=== PATIENT | male | born 1995 | race Caucasian/White ===

== ENCOUNTER 2019-02-12 23:04 | Day surgery (SDC) | payer BC ==
[2019-02-12] MEDS ORDERED: Sodium Chloride 0.9% 1,000 ML IV ONE (23:31)
[2019-02-12] MEDS ORDERED: Ketorolac 30 MG/ML SDV IVPUSH ONE (23:31)
[2019-02-12] MEDS ORDERED: Ondansetron 4 MG/2 ML SDV IVPUSH ONE (23:31)
[2019-02-12] MEDS ORDERED: Sodium Chloride 0.9% 10 ML Syringe FLUSH PRN (23:31)
[2019-02-12] MEDS ORDERED: Sodium Chloride 0.9% 2.5 ML Syringe FLUSH PRN (23:31)
--- NOTE | 2019-02-12 23:35 | EDM.PDOC ---
ED HPI GENERAL MEDICAL PROBLEM - General Chief Complaint: Abdominal Pain Stated Complaint: ABD PAIN Time Seen by Provider: 02/12/19 23:05 - History of Present Illness INITIAL COMMENTS - FREE TEXT/NARRATIVE: HISTORY AND PHYSICAL: History of present illness: The patient is a healthy 23-year-old male with no GI history or abdominal surgical history who presents with onset of periumbilical pain at a proximally 7 :30 PM which has now moved to the right lower quadrant. The patient tells me he had a normal day without any systemic issues and had a normal bowel movement earlier and ate at a local [employer] food restaurant and soon after finishing started having some periumbilical discomfort. He thought it was just something that he ate that upset his stomach as he says he has gotten stomachaches with certain foods in the past but has no discrete food intolerance. He says that he did not take anything for the pain and has had some intermittent nausea but no vomiting and he has not had a fever at home. The pain has been moving and is now on the right lower quadrant but there is no testicular pain or swelling and no flank pain. He has no urinary complaints or hematuria. He tells me that he has had stomachaches before with certain foods but never anything like this and it is very different. He denies any recent history of illnesses or trauma. He says as a deep aching pain and he does not feel bloated or gassy. Review of systems: As per history of present illness and below otherwise all systems reviewed and negative. Past medical history: As per history of present illness and as reviewed below otherwise noncontributory. Surgical history: As per history of present illness and as reviewed below otherwise noncontributory. Social history: No reported history of drug or alcohol abuse. Family history: As per history of present illness and as reviewed below otherwise noncontributory. Physical exam: General: Well-developed well-nourished man who moves easily in the ED without distress. Vital signs are noted by me. HEENT: Atraumatic, normocephalic, negative for conjunctival pallor or scleral icterus, mucous membranes moist, throat clear, neck supple, nontender, trachea midline. Lungs: Clear to auscultation, breath sounds equal bilaterally, chest nontender. Heart: S1S2, regular rate and rhythm no overt murmurs Abdomen: Soft, nondistended, bowel sounds are slightly hypoactive and there is a little tympany on percussion of the left upper quadrant. On examination there is discomfort on the right side when I palpate the left side and there is no specific periumbilical tenderness. There is moderate point tenderness in the right lower quadrant with some voluntary guarding but no involuntary guarding or rebound. Negative for masses or hepatosplenomegaly. Negative for costovertebral tenderness. Pelvis: Stable nontender. Genitourinary: Deferred. Rectal: Deferred. Extremities: Atraumatic, negative for cords or calf pain. Neurovascular unremarkable. Neuro: Awake, alert, oriented. Cranial nerves II through XII unremarkable. Cerebellum unremarkable. Motor and sensory unremarkable throughout. Exam nonfocal. Diagnostics: CBC CMP UA with reflex CT scan of the abdomen and pelvis Therapeutics: IV fluids Zofran Toradol Zosyn 0142: This was discussed with Dr. Kelly who will admit the patient and do surgery later this morning. I discussed all of the testing results with the patient and he is aware that he needs surgery and admission and is agreeable. Impression: Tip appendicitis Definitive disposition and diagnosis as appropriate pending reevaluation and review of above. RLQ abdomen Pain Score (Numeric/FACES): 7 - Related Data Allergies Allergy/AdvReac Type Severity Reaction Status Date / Time No Known Allergies Allergy Verified 02/12/19 23:07 Home Meds: Home Meds . [No Known Home Meds] 02/12/19 [History] Past Medical History - Past Surgical History HEENT Surgical History: Reports: Oral Surgery Social & Family History - Family History Family Medical History: Noncontributory - Tobacco Use Smoking Status *Q: Never Smoker - Recreational Drug Use Recreational Drug Use: No ED ROS GENERAL - Review of Systems Review Of Systems: ROS reveals no pertinent complaints other than HPI. ED EXAM, GENERAL - Physical Exam Exam: See Below (See dictation) Course - Vital Signs Last Recorded V/S: Last Vital Signs Temp 36.6 C 02/13/19 01:37 Pulse 55 L 02/13/19 01:37 Resp 18 02/13/19 01:37 BP 113/62 02/13/19 01:37 Pulse Ox 97 02/13/19 01:37 - Orders/Labs/Meds Orders: Active Orders 24 hr Category Date Time Status Patient Status [ADT] Stat ADT 02/13/19 01:47 Ordered Lactated Ringers [Ringers, Lactated] 1,000 ml Med 02/13/19 01:45 Active IV ASDIRECTED Piperacillin/Tazobactam [Piperacil-Tazobact] 3.375 gm Med 02/13/19 01:44 Active Sodium Chloride 0.9% [Normal Saline] 50 ml IV ONETIME Sodium Chloride 0.9% [Saline Flush] Med 02/12/19 23:31 Active 10 ml FLUSH ASDIRECTED PRN Sodium Chloride 0.9% [Saline Flush] Med 02/12/19 23:31 Active 2.5 ml FLUSH ASDIRECTED PRN Saline Lock Insert [OM.PC] Stat Oth 02/12/19 23:31 Ordered Medication Orders Lactated Ringer's (Ringers, Lactated) 1,000 mls @ 125 mls/hr IV ASDIRECTED HARJTI Piperacillin Sod/Tazobactam (Sod 3.375 gm/ Sodium Chloride) 50 mls @ 100 mls/ hr IV ONETIME ONE Stop: 02/13/19 02:13 Sodium Chloride (Saline Flush) 10 ml FLUSH ASDIRECTED PRN PRN Reason: Keep Vein Open Sodium Chloride (Saline Flush) 2.5 ml FLUSH ASDIRECTED PRN PRN Reason: Keep Vein Open Labs: Laboratory Tests 02/12/19 02/12/19 02/12/19 Range/Units 23:30 23:35 23:35 WBC 14.85 H (4.0-11.0) K/uL RBC 5.38 (4.50-5.90) M/uL Hgb 16.8 (13.0-17.0) g/dL Hct 48.8 (38.0-50.0) % MCV 90.7 (80.0-98.0) fL MCH 31.2 (27.0-32.0) pg MCHC 34.4 (31.0-37.0) g/dL RDW Std Deviation 42.9 (28.0-62.0) fl RDW Coeff of Linda 13 (11.0-15.0) % Plt Count 220 (150-400) K/uL MPV 12.60 H (7.40-12.00) fL Neut % (Auto) 68.4 (48.0-80.0) % Lymph % (Auto) 20.3 (16.0-40.0) % [place] % (Auto) 9.6 (0.0-15.0) % Eos % (Auto) 1.6 (0.0-7.0) % Baso % (Auto) 0.1 (0.0-1.5) % Neut # (Auto) 10.2 H (1.4-5.7) K/uL Lymph # (Auto) 3.0 H (0.6-2.4) K/uL [place] # (Auto) 1.4 H (0.0-0.8) K/uL Eos # (Auto) 0.2 (0.0-0.7) K/uL Baso # (Auto) 0.0 (0.0-0.1) K/uL Nucleated RBC % 0.0 /100WBC Nucleated RBCs # 0 K/uL Sodium 140 (136-148) mmol/L Potassium 3.5 (3.5-5.1) mmol/L Chloride 103 (98-107) mmol/L Carbon Dioxide 29.3 (21.0-32.0) mmol/L BUN 15 (7.0-18.0) mg/dL Creatinine 1.3 (0.8-1.3) mg/dL Est Cr Clr Drug Dosing 111.38 mL/min Estimated GFR (MDRD) > 60.0 ml/min Glucose 108 H (74-106) mg/dL Calcium 8.7 (8.5-10.1) mg/dL Total Bilirubin 0.4 (0.2-1.0) mg/dL AST 18 (15-37) IU/L ALT 28 (14-63) IU/L Alkaline Phosphatase 57 (46-116) U/L Total Protein 7.9 (6.4-8.2) g/dL Albumin 4.1 (3.4-5.0) g/dL Globulin 3.8 (2.6-4.0) g/dL Albumin/Globulin Ratio 1.1 (0.9-1.6) Urine Color YELLOW Urine Appearance CLEAR Urine pH 6.5 (5.0-8.0) Ur Specific [place] 1.025 (1.001-1.035) Urine Protein NEGATIVE (NEGATIVE) mg/dL Urine Glucose (UA) NEGATIVE (NEGATIVE) mg/dL Urine Ketones NEGATIVE (NEGATIVE) mg/dL Urine Occult Blood NEGATIVE (NEGATIVE) Urine Nitrite NEGATIVE (NEGATIVE) Urine Bilirubin NEGATIVE (NEGATIVE) Urine Urobilinogen 0.2 (<2.0) EU/dL Ur Leukocyte Esterase NEGATIVE (NEGATIVE) Meds: Medications Generic Name Dose Route Start Last Admin Trade Name Freq PRN Reason Stop Dose Admin Lactated Ringer's 1,000 mls @ 125 mls/hr 02/13/19 01:45 Ringers, Lactated IV ASDIRECTED HARJIT Piperacillin Sod/Tazobactam 50 mls @ 100 mls/hr 02/13/19 01:44 Sod 3.375 gm/ Sodium Chloride IV 02/13/19 02:13 ONETIME ONE Sodium Chloride 10 ml 02/12/19 23:31 Saline Flush FLUSH ASDIRECTED PRN Keep Vein Open Sodium Chloride 2.5 ml 02/12/19 23:31 Saline Flush FLUSH ASDIRECTED PRN Keep Vein Open Discontinued Medications Generic Name Dose Route Start Last Admin Trade Name Freq PRN Reason Stop Dose Admin Sodium Chloride 1,000 mls @ 999 mls/hr 02/12/19 23:31 02/12/19 23:43 Normal Saline IV 02/13/19 00:31 999 mls/hr STAT ONE Administration Iopamidol 100 ml 02/13/19 00:54 02/13/19 00:55 Isovue Multipack-370 (76%) IVPUSH 02/13/19 00:55 100 ml ONETIME STA Administration Ketorolac Tromethamine 30 mg 02/12/19 23:31 02/12/19 23:44 Toradol IVPUSH 02/12/19 23:32 30 mg ONETIME ONE Administration Ondansetron HCl 4 mg 02/12/19 23:31 02/12/19 23:44 Zofran IVPUSH 02/12/19 23:32 4 mg ONETIME ONE Administration Departure - Departure Time of Disposition: 01:50 Disposition: DC/Tfer to Other 70 Condition: Good Clinical Impression: Appendicitis Qualifiers: Appendicitis type: acute appendicitis Acute appendicitis type: with localized peritonitis Appendicitis gangrene presence: without gangrene Appendicitis perforation presence: without perforation Appendicitis abscess presence: without abscess Qualified Code(s): K35.30 - Acute appendicitis with localized peritonitis, without perforation or gangrene - Discharge Information Referrals: PCP,None [Primary Care Provider] - Forms: ED Department Discharge - My Orders Last 24 Hours: My Active Orders 02/12/19 23:31 Sodium Chloride 0.9% [Saline Flush] 10 ml FLUSH ASDIRECTED PRN Sodium Chloride 0.9% [Saline Flush] 2.5 ml FLUSH ASDIRECTED PRN Saline Lock Insert [OM.PC] Stat 02/13/19 01:44 Piperacillin/Tazobactam [Piperacil-Tazobact] 3.375 gm Sodium Chloride 0.9% [ Normal Saline] 50 ml IV ONETIME 02/13/19 01:45 Lactated Ringers [Ringers, Lactated] 1,000 ml IV ASDIRECTED 02/13/19 01:47 Patient Status [ADT] Stat - Assessment/Plan Last 24 Hours: My Active Orders 02/12/19 23:31 Sodium Chloride 0.9% [Saline Flush] 10 ml FLUSH ASDIRECTED PRN Sodium Chloride 0.9% [Saline Flush] 2.5 ml FLUSH ASDIRECTED PRN Saline Lock Insert [OM.PC] Stat 02/13/19 01:44 Piperacillin/Tazobactam [Piperacil-Tazobact] 3.375 gm Sodium Chloride 0.9% [ Normal Saline] 50 ml IV ONETIME 02/13/19 01:45 Lactated Ringers [Ringers, Lactated] 1,000 ml IV ASDIRECTED 02/13/19 01:47 Patient Status [ADT] Stat
[2019-02-13 00:05] LABS: BLOOD UREA NITROGEN,BUN 15 mg/dL (7.0-18.0); CARBON DIOXIDE,CO2 29.3 mmol/L (21.0-32.0); CHLORIDE,CL 103 mmol/L (98-107); GLUCOSE RANDOM 108 mg/dL (74-106); POTASSIUM,K 3.5 mmol/L (3.5-5.1); SODIUM,NA 140 mmol/L (136-148)
[2019-02-13] MEDS ORDERED: Iopamidol 755 MG/ML 500 ML Multipack Bottle IVPUSH STA (00:54)
--- NOTE | 2019-02-13 01:32 | CT ---
INDICATION: Right lower quadrant pain TECHNIQUE: CT abdomen and pelvis acquired with IV contrast. 100 mL of Isovue 370 administered. COMPARISON: None available FINDINGS: Lower chest: Unremarkable. Liver: A subcentimeter superior right hepatic low-density lesion, too small to characterize, statistically a small cyst. Spleen: Unremarkable. Pancreas: Unremarkable. Gallbladder and bile ducts: Unremarkable. Adrenal glands: Unremarkable. Kidneys: Unremarkable. GI tract: Fluid-filled mid to distal appendix, demonstrating mild wall enhancement, with the distal appendiceal tip measuring up to 8 mm in diameter, and trace adjacent stranding, suggestive of early tip appendicitis. The proximal appendix is gas-filled and normal in caliber. No bowel obstruction. No significant pericolonic changes. Vascular structures: Unremarkable. Lymph nodes: Unremarkable. Miscellaneous: No significant free fluid or free air. Pelvic Organs: Unremarkable. Bones: Unremarkable for age. IMPRESSION: Findings suggestive of early tip appendicitis. Correlate clinically. Dictated by Lucien Sutton MD @ 02/13/2019 1:29:31 AM Please note that all CT scans at this facility use dose modulation, iterative reconstruction, and/or weight-based dosing when appropriate to reduce radiation dose to as low as reasonably achievable. Dictated by: Lucien Sutton MD @ 02/13/2019 01:31:24 (Electronically Signed)
[2019-02-13] MEDS ORDERED: Piperacillin/Tazobactam 3.375 GM in Sodium Chloride 0.9% 50 ML IV ONE (01:44)
[2019-02-13] MEDS ORDERED: Lactated Ringers 1,000 ML IV SCH ×2 (01:45→02:15)
[2019-02-13] MEDS ORDERED: HYDROmorphone 1 MG/ML Syringe IM PRN (02:04)
[2019-02-13] MEDS ORDERED: Ondansetron 4 MG/2 ML SDV IVPUSH PRN (02:07)
[2019-02-13] MEDS: Piperacillin/Tazobactam 3.375 GM in Sodium Chloride 0.9% 50 ML IV SCH ×2 (03:49→08:10)
--- NOTE | 2019-02-13 07:23 | PCM.PREANE ---
Preanesthetic Assessment - Anesthesia/Transfusion/Family Hx Anesthesia History: Prior Anesthesia Without Reaction Family History of Anesthesia Reaction: No Transfusion History: No Prior Transfusion(s) - Review of Systems General: No Symptoms Pulmonary: No Symptoms Cardiovascular: No Symptoms Gastrointestinal: No Symptoms Neurological: No Symptoms Other: Reports: None - Physical Assessment NPO Status Date: 02/12/19 NPO Status Time: 20:00 Vital Signs: Last Vital Signs Temp 98.6 F 02/13/19 04:33 Pulse 54 L 02/13/19 04:33 Resp 18 02/13/19 04:33 BP 99/57 L 02/13/19 04:33 Pulse Ox 95 02/13/19 04:33 Height: 6 ft 5 in Weight: 90.451 kg ASA Class: 2E Mental Status: Alert & Oriented x3 Airway Class: Mallampati = 2 Dentition: Reports: Normal Dentition Thyro-Mental Finger Breadths: 3 Mouth Opening Finger Breadths: 3 ROM/Head Extension: Full Lungs: Clear to Auscultation, Normal Respiratory Effort Cardiovascular: Regular Rate, Regular Rhythm - Lab Values: Laboratory Last Values WBC 14.85 K/uL (4.0-11.0) H 02/12/19 23:35 RBC 5.38 M/uL (4.50-5.90) 02/12/19 23:35 Hgb 16.8 g/dL (13.0-17.0) 02/12/19 23:35 Hct 48.8 % (38.0-50.0) 02/12/19 23:35 MCV 90.7 fL (80.0-98.0) 02/12/19 23:35 MCH 31.2 pg (27.0-32.0) 02/12/19 23:35 MCHC 34.4 g/dL (31.0-37.0) 02/12/19 23:35 RDW Std Deviation 42.9 fl (28.0-62.0) 02/12/19 23:35 RDW Coeff of Linda 13 % (11.0-15.0) 02/12/19 23:35 Plt Count 220 K/uL (150-400) 02/12/19 23:35 MPV 12.60 fL (7.40-12.00) H 02/12/19 23:35 Neut % (Auto) 68.4 % (48.0-80.0) 02/12/19 23:35 Lymph % (Auto) 20.3 % (16.0-40.0) 02/12/19 23:35 [place] % (Auto) 9.6 % (0.0-15.0) 02/12/19 23:35 Eos % (Auto) 1.6 % (0.0-7.0) 02/12/19 23:35 Baso % (Auto) 0.1 % (0.0-1.5) 02/12/19 23:35 Neut # (Auto) 10.2 K/uL (1.4-5.7) H 02/12/19 23:35 Lymph # (Auto) 3.0 K/uL (0.6-2.4) H 02/12/19 23:35 [place] # (Auto) 1.4 K/uL (0.0-0.8) H 02/12/19 23:35 Eos # (Auto) 0.2 K/uL (0.0-0.7) 02/12/19 23:35 Baso # (Auto) 0.0 K/uL (0.0-0.1) 02/12/19 23:35 Nucleated RBC % 0.0 /100WBC 02/12/19 23:35 Nucleated RBCs # 0 K/uL 02/12/19 23:35 Sodium 140 mmol/L (136-148) 02/12/19 23:35 Potassium 3.5 mmol/L (3.5-5.1) 02/12/19 23:35 Chloride 103 mmol/L (98-107) 02/12/19 23:35 Carbon Dioxide 29.3 mmol/L (21.0-32.0) 02/12/19 23:35 BUN 15 mg/dL (7.0-18.0) 02/12/19 23:35 Creatinine 1.3 mg/dL (0.8-1.3) 02/12/19 23:35 Est Cr Clr Drug Dosing 111.38 mL/min 02/12/19 23:35 Estimated GFR (MDRD) > 60.0 ml/min 02/12/19 23:35 Glucose 108 mg/dL (74-106) H 02/12/19 23:35 Calcium 8.7 mg/dL (8.5-10.1) 02/12/19 23:35 Total Bilirubin 0.4 mg/dL (0.2-1.0) 02/12/19 23:35 AST 18 IU/L (15-37) 02/12/19 23:35 ALT 28 IU/L (14-63) 02/12/19 23:35 Alkaline Phosphatase 57 U/L (46-116) 02/12/19 23:35 Total Protein 7.9 g/dL (6.4-8.2) 02/12/19 23:35 Albumin 4.1 g/dL (3.4-5.0) 02/12/19 23:35 Globulin 3.8 g/dL (2.6-4.0) 02/12/19 23:35 Albumin/Globulin Ratio 1.1 (0.9-1.6) 02/12/19 23:35 Urine Color YELLOW 02/12/19 23:30 Urine Appearance CLEAR 02/12/19 23:30 Urine pH 6.5 (5.0-8.0) 02/12/19 23:30 Ur Specific [place] 1.025 (1.001-1.035) 02/12/19 23:30 Urine Protein NEGATIVE mg/dL (NEGATIVE) 02/12/19 23:30 Urine Glucose (UA) NEGATIVE mg/dL (NEGATIVE) 02/12/19 23:30 Urine Ketones NEGATIVE mg/dL (NEGATIVE) 02/12/19 23:30 Urine Occult Blood NEGATIVE (NEGATIVE) 02/12/19 23:30 Urine Nitrite NEGATIVE (NEGATIVE) 02/12/19 23:30 Urine Bilirubin NEGATIVE (NEGATIVE) 02/12/19 23:30 Urine Urobilinogen 0.2 EU/dL (<2.0) 02/12/19 23:30 Ur Leukocyte Esterase NEGATIVE (NEGATIVE) 02/12/19 23:30 - Allergies Allergies/Adverse Reactions: Allergies Allergy/AdvReac Type Severity Reaction Status Date / Time house dust Allergy Sneezing Verified 02/13/19 03:00 tree and shrub pollen Allergy Sneezing Verified 02/13/19 03:00 - Acknowledgements Anesthesia Type Planned: General Anesthesia Pt an Appropriate Candidate for the Planned Anesthesia: Yes Alternatives and Risks of Anesthesia Discussed w Pt/Guardian: Yes Pt/Guardian Understands and Agrees with Anesthesia Plan: Yes PreAnesthesia Questionnaire HEENT History: Reports: None Cardiovascular History: Reports: None Respiratory History: Reports: None Gastrointestinal History: Reports: Other (See Below) (appendicitis) Genitourinary History: Reports: None Musculoskeletal History: Reports: None Neurological History: Reports: None Psychiatric History: Reports: None Endocrine/Metabolic History: Reports: None Hematologic History: Reports: None Immunologic History: Reports: None Oncologic (Cancer) History: Reports: None Dermatologic History: Reports: None - Infectious Disease History Infectious Disease History: Reports: None - Past Surgical History HEENT Surgical History: Reports: Oral Surgery (wisdom teeth extraction.) - SUBSTANCE USE Smoking Status *Q: Never Smoker Tobacco Use Within Last Twelve Months: Vaping Date of Last Drink: 02/11/19 Recreational Drug Use History: No - HOME MEDS Home Medications: Home Meds Ibuprofen [Advil Liqui-Gels] 200 cap PO Q4HR PRN 02/13/19 [History] - CURRENT (IN HOUSE) MEDS Current Meds: Current Medications Hydromorphone HCl (Dilaudid) 0.5 mg IM Q1H PRN PRN Reason: Pain Lactated Ringer's (Ringers, Lactated) 1,000 mls @ 125 mls/hr IV ASDIRECTED [facility] Last Admin: 02/13/19 01:53 Dose: 125 mls/hr Lactated Ringer's (Ringers, Lactated) 1,000 mls @ 125 mls/hr IV ASDIRECTED [facility] Piperacillin Sod/Tazobactam (Sod 3.375 gm/ Sodium Chloride) 50 mls @ 100 mls/ hr IV Q6H [facility] Last Admin: 02/13/19 03:49 Dose: Not Given Ondansetron HCl (Zofran) 4 mg IVPUSH Q6H PRN PRN Reason: Nausea Sodium Chloride (Saline Flush) 10 ml FLUSH ASDIRECTED PRN PRN Reason: Keep Vein Open Sodium Chloride (Saline Flush) 2.5 ml FLUSH ASDIRECTED PRN PRN Reason: Keep Vein Open Discontinued Medications Sodium Chloride (Normal Saline) 1,000 mls @ 999 mls/hr IV STAT ONE Stop: 02/13/19 00:31 Last Admin: 02/12/19 23:43 Dose: 999 mls/hr Piperacillin Sod/Tazobactam (Sod 3.375 gm/ Sodium Chloride) 50 mls @ 100 mls/ hr IV ONETIME ONE Stop: 02/13/19 02:13 Last Admin: 02/13/19 01:53 Dose: 100 mls/hr Iopamidol (Isovue Multipack-370 (76%)) 100 ml IVPUSH ONETIME STA Stop: 02/13/19 00:55 Last Admin: 02/13/19 00:55 Dose: 100 ml Ketorolac Tromethamine (Toradol) 30 mg IVPUSH ONETIME ONE Stop: 02/12/19 23:32 Last Admin: 02/12/19 23:44 Dose: 30 mg Ondansetron HCl (Zofran) 4 mg IVPUSH ONETIME ONE Stop: 02/12/19 23:32 Last Admin: 02/12/19 23:44 Dose: 4 mg
--- NOTE | 2019-02-13 08:23 | PCM.HP.2 ---
H&P History of Present Illness - General Date of Service: 02/13/19 Admit Problem/Dx: Admission Diagnosis/Problem Admission Diagnosis/Problem Appendicitis Source of Information: Patient History Limitations: Reports: No Limitations - History of Present Illness Initial Comments - Free Text/Narative: Patient is a 23 year old male who presents with RLQ pain since last night. He had dinner and felt unwell afterwards. He went home and developed darcie- umbilical pain that then migrated to the RLQ. He presented to the ER. He had an elevated WBC of 14K. A CT scan was performed that showed a slightly dilated tip of the appendix consistent with early appendicitis. RLQ abdomen Pain Score (Numeric/FACES): 1 - Related Data Allergies/Adverse Reactions: Allergies Allergy/AdvReac Type Severity Reaction Status Date / Time house dust Allergy Sneezing Verified 02/13/19 03:00 tree and shrub pollen Allergy Sneezing Verified 02/13/19 03:00 Home Medications: Home Meds Ibuprofen [Advil Liqui-Gels] 200 cap PO Q4HR PRN 02/13/19 [History] Past Medical History HEENT History: Reports: None Cardiovascular History: Reports: None Respiratory History: Reports: None Gastrointestinal History: Reports: Other (See Below) (appendicitis) Genitourinary History: Reports: None Musculoskeletal History: Reports: None Neurological History: Reports: None Psychiatric History: Reports: None Endocrine/Metabolic History: Reports: None Hematologic History: Reports: None Immunologic History: Reports: None Oncologic (Cancer) History: Reports: None Dermatologic History: Reports: None - Infectious Disease History Infectious Disease History: Reports: None - Past Surgical History HEENT Surgical History: Reports: Oral Surgery (wisdom teeth extraction.) Social & Family History - Family History Family Medical History: Noncontributory - Tobacco Use Smoking Status *Q: Never Smoker Tobacco Use Comment: Occasional - Caffeine Use Caffeine Use: Reports: Coffee, Soda, Tea - Alcohol Use Date of Last Drink: 02/11/19 - Recreational Drug Use Recreational Drug Use: No H&P Review of Systems - Review of Systems: Review Of Systems: ROS reveals no pertinent complaints other than HPI. Exam - Exam Exam: See Below - Vital Signs Vital Signs: Last Vital Signs Temp 36.8 C 02/13/19 07:00 Pulse 68 02/13/19 07:00 Resp 16 02/13/19 07:00 BP 115/57 L 02/13/19 07:00 Pulse Ox 97 02/13/19 07:00 Weight: 90.451 kg - Exam General: Alert, Oriented HEENT: Conjunctiva Clear, Mucosa Moist & [place], Posterior Pharynx Clear Neck: Supple, Trachea Midline Lungs: Clear to Auscultation, Normal Respiratory Effort Cardiovascular: Regular Rate, Regular Rhythm GI/Abdominal Exam: Soft, No Distention, No Mass, Guarding (RLQ), Rebound (RLQ), Tender (RLQ) Back Exam: Normal Inspection Extremities: Normal Inspection - Patient Data Lab Results Last 24 hrs: Laboratory Results - last 24 hr 02/12/19 02/12/19 02/12/19 Range/Units 23:30 23:35 23:35 WBC 14.85 H (4.0-11.0) K/uL RBC 5.38 (4.50-5.90) M/uL Hgb 16.8 (13.0-17.0) g/dL Hct 48.8 (38.0-50.0) % MCV 90.7 (80.0-98.0) fL MCH 31.2 (27.0-32.0) pg MCHC 34.4 (31.0-37.0) g/dL RDW Std Deviation 42.9 (28.0-62.0) fl RDW Coeff of Linda 13 (11.0-15.0) % Plt Count 220 (150-400) K/uL MPV 12.60 H (7.40-12.00) fL Neut % (Auto) 68.4 (48.0-80.0) % Lymph % (Auto) 20.3 (16.0-40.0) % [place] % (Auto) 9.6 (0.0-15.0) % Eos % (Auto) 1.6 (0.0-7.0) % Baso % (Auto) 0.1 (0.0-1.5) % Neut # (Auto) 10.2 H (1.4-5.7) K/uL Lymph # (Auto) 3.0 H (0.6-2.4) K/uL [place] # (Auto) 1.4 H (0.0-0.8) K/uL Eos # (Auto) 0.2 (0.0-0.7) K/uL Baso # (Auto) 0.0 (0.0-0.1) K/uL Nucleated RBC % 0.0 /100WBC Nucleated RBCs # 0 K/uL Sodium 140 (136-148) mmol/L Potassium 3.5 (3.5-5.1) mmol/L Chloride 103 (98-107) mmol/L Carbon Dioxide 29.3 (21.0-32.0) mmol/L BUN 15 (7.0-18.0) mg/dL Creatinine 1.3 (0.8-1.3) mg/dL Est Cr Clr Drug Dosing 111.38 mL/min Estimated GFR (MDRD) > 60.0 ml/min Glucose 108 H (74-106) mg/dL Calcium 8.7 (8.5-10.1) mg/dL Total Bilirubin 0.4 (0.2-1.0) mg/dL AST 18 (15-37) IU/L ALT 28 (14-63) IU/L Alkaline Phosphatase 57 (46-116) U/L Total Protein 7.9 (6.4-8.2) g/dL Albumin 4.1 (3.4-5.0) g/dL Globulin 3.8 (2.6-4.0) g/dL Albumin/Globulin Ratio 1.1 (0.9-1.6) Urine Color YELLOW Urine Appearance CLEAR Urine pH 6.5 (5.0-8.0) Ur Specific [place] 1.025 (1.001-1.035) Urine Protein NEGATIVE (NEGATIVE) mg/dL Urine Glucose (UA) NEGATIVE (NEGATIVE) mg/dL Urine Ketones NEGATIVE (NEGATIVE) mg/dL Urine Occult Blood NEGATIVE (NEGATIVE) Urine Nitrite NEGATIVE (NEGATIVE) Urine Bilirubin NEGATIVE (NEGATIVE) Urine Urobilinogen 0.2 (<2.0) EU/dL Ur Leukocyte Esterase NEGATIVE (NEGATIVE) Result Diagrams: 02/12/19 23:35 02/12/19 23:35 Problem List Initiated/Reviewed/Updated: Yes Orders Last 24hrs: Active Orders 24 hr Category Date Time Status Patient Status [ADT] Stat ADT 02/13/19 01:47 Active Activity as Tolerated [RC] .Routine Care 02/13/19 02:09 Active Vital Signs [RC] Q4H Care 02/13/19 02:08 Active Nothing per Oral Now Diet [DIET] Diet 02/13/19 Breakfast Active HYDROmorphone [Dilaudid] Med 02/13/19 02:04 Active 0.5 mg IM Q1H PRN Lactated Ringers [Ringers, Lactated] 1,000 ml Med 02/13/19 01:45 Active IV ASDIRECTED Lactated Ringers [Ringers, Lactated] 1,000 ml Med 02/13/19 02:15 Active IV ASDIRECTED Ondansetron [Zofran] Med 02/13/19 02:07 Active 4 mg IVPUSH Q6H PRN Piperacillin/Tazobactam [Piperacil-Tazobact] 3.375 gm Med 02/13/19 02:15 Active Sodium Chloride 0.9% [Normal Saline] 50 ml IV Q6H Sodium Chloride 0.9% [Saline Flush] Med 02/12/19 23:31 Active 10 ml FLUSH ASDIRECTED PRN Sodium Chloride 0.9% [Saline Flush] Med 02/12/19 23:31 Active 2.5 ml FLUSH ASDIRECTED PRN Saline Lock Insert [OM.PC] Stat Oth 02/12/19 23:31 Ordered Medication Orders Hydromorphone HCl (Dilaudid) 0.5 mg IM Q1H PRN PRN Reason: Pain Last Admin: 02/13/19 08:07 Dose: 0.5 mg Lactated Ringer's (Ringers, Lactated) 1,000 mls @ 125 mls/hr IV ASDIRECTED [facility] Last Admin: 02/13/19 01:53 Dose: 125 mls/hr Lactated Ringer's (Ringers, Lactated) 1,000 mls @ 125 mls/hr IV ASDIRECTED [facility] Piperacillin Sod/Tazobactam (Sod 3.375 gm/ Sodium Chloride) 50 mls @ 100 mls/ hr IV Q6H [facility] Last Admin: 02/13/19 08:10 Dose: 100 mls/hr Admin: 02/13/19 03:49 Dose: Not Given Ondansetron HCl (Zofran) 4 mg IVPUSH Q6H PRN PRN Reason: Nausea Sodium Chloride (Saline Flush) 10 ml FLUSH ASDIRECTED PRN PRN Reason: Keep Vein Open Sodium Chloride (Saline Flush) 2.5 ml FLUSH ASDIRECTED PRN PRN Reason: Keep Vein Open - Mortality Measure Prognosis:: Good
[2019-02-13] MEDS ORDERED: fentaNYL 100 MCG/2 ML SDV ONE (09:11)
[2019-02-13] MEDS ORDERED: Propofol 200 MG/20 ML SDV ONE (09:11)
[2019-02-13] MEDS ORDERED: Ondansetron 4 MG/2 ML SDV ONE (09:13)
[2019-02-13] MEDS ORDERED: Lidocaine 2% 5 ML SDV ONE (09:13)
[2019-02-13] MEDS ORDERED: Mineral Oil/Petrolatum Ophth Oint 3.5 GM Tube ONE (09:46)
[2019-02-13] MEDS ORDERED: Midazolam 1 MG/ML 2 ML SDV ONE (10:20)
[2019-02-13] MEDS ORDERED: Bupivacaine 0.5% 30 ML SDV ONE (10:30)
[2019-02-13] MEDS ORDERED: Bupivacaine 0.5% 10 ML SDV ONE (10:30)
[2019-02-13] MEDS ORDERED: Rocuronium 100 MG/10 ML Syringe ONE (11:17)
[2019-02-13] MEDS ORDERED: Dexamethasone 4 MG/ML 5 ML MDV ONE (11:31)
[2019-02-13] MEDS ORDERED: Sugammadex Sodium 200 MG/2 ML VIAL ONE (12:02)
[2019-02-13] MEDS ORDERED: Ketorolac 30 MG/ML SDV ONE (12:08)
--- NOTE | 2019-02-13 12:10 | PCM.OPNOTE ---
- General Post-Op/Procedure Note Date of Surgery/Procedure: 02/13/19 Operative Procedure(s): Laparoscopic appendectomy Findings: Enlarged and inflamed appendix, no perforation Pre Op Diagnosis: Appendicitis Post-Op Diagnosis: same Anesthesia Technique: General ET Tube Primary Surgeon: Tati Kelly Fluid Replacement, Intraop: 600 Output, Urine Amount: 50 EBL in mLs: 5 Condition: Fair Free Text/Narrative:: Intake & Output 02/12/19 02/13/19 02/13/19 22:59 06:59 14:59 Intake Total 282 Output Total 0 Balance 282
--- NOTE | 2019-02-13 12:52 | PCM.POSTAN ---
POST ANESTHESIA ASSESSMENT - MENTAL STATUS Mental Status: Alert, Oriented - VITAL SIGNS Vital Signs: Last Vital Signs Temp 37.7 C 02/13/19 12:17 Pulse 46 L 02/13/19 12:47 Resp 10 L 02/13/19 12:47 BP 106/67 02/13/19 12:47 Pulse Ox 98 02/13/19 12:47 - RESPIRATORY Respiratory Status: Respiratory Rate WNL, Airway Patent, O2 Saturation Stable - CARDIOVASCULAR CV Status: Pulse Rate WNL, Blood Pressure Stable - GASTROINTESTINAL GI Status: No Symptoms - PAIN Pain Score: 0 - POST OP HYDRATION Hydration Status: Adequate & Stable - OBSERVATIONS Free Text/Narrative:: The patient has no complaints at this time. He tolerated the procedure well. There were no apparent anesthetic complications at this time. Discharge per criteria.
[2019-02-13] MEDS: Acetaminophen/oxyCODONE 325-5 MG Tab PO PRN ×2 (15:29→19:32)
--- NOTE | 2019-02-13 19:05 | PCM.SURGPN ---
- General Info Date of Service: 02/13/19 POD#: 0 Functional Status: Reports: Pain Controlled, Tolerating Diet, Ambulating, Urinating - Review of Systems General: Reports: No Symptoms HEENT: Reports: No Symptoms Pulmonary: Reports: No Symptoms Cardiovascular: Reports: No Symptoms Gastrointestinal: Reports: Abdominal Pain (left side along incisions ) Genitourinary: Reports: No Symptoms Musculoskeletal: Reports: No Symptoms - Patient Data Vitals - Most Recent: Last Vital Signs Temp 36.4 C 02/13/19 17:00 Pulse 47 L 02/13/19 17:00 Resp 16 02/13/19 17:00 BP 106/59 L 02/13/19 17:00 Pulse Ox 94 L 02/13/19 17:00 Weight - Most Recent: 90.451 kg I&O - Last 24 Hours: Intake & Output 02/13/19 02/13/19 02/13/19 06:59 14:59 22:59 Intake Total 282 1300 640 Output Total 0 150 160 Balance 282 1150 480 Lab Results Last 24 Hrs: Laboratory Results - last 24 hr 02/12/19 02/12/19 02/12/19 Range/Units 23:30 23:35 23:35 WBC 14.85 H (4.0-11.0) K/uL RBC 5.38 (4.50-5.90) M/uL Hgb 16.8 (13.0-17.0) g/dL Hct 48.8 (38.0-50.0) % MCV 90.7 (80.0-98.0) fL MCH 31.2 (27.0-32.0) pg MCHC 34.4 (31.0-37.0) g/dL RDW Std Deviation 42.9 (28.0-62.0) fl RDW Coeff of Linda 13 (11.0-15.0) % Plt Count 220 (150-400) K/uL MPV 12.60 H (7.40-12.00) fL Neut % (Auto) 68.4 (48.0-80.0) % Lymph % (Auto) 20.3 (16.0-40.0) % [place] % (Auto) 9.6 (0.0-15.0) % Eos % (Auto) 1.6 (0.0-7.0) % Baso % (Auto) 0.1 (0.0-1.5) % Neut # (Auto) 10.2 H (1.4-5.7) K/uL Lymph # (Auto) 3.0 H (0.6-2.4) K/uL [place] # (Auto) 1.4 H (0.0-0.8) K/uL Eos # (Auto) 0.2 (0.0-0.7) K/uL Baso # (Auto) 0.0 (0.0-0.1) K/uL Nucleated RBC % 0.0 /100WBC Nucleated RBCs # 0 K/uL Sodium 140 (136-148) mmol/L Potassium 3.5 (3.5-5.1) mmol/L Chloride 103 (98-107) mmol/L Carbon Dioxide 29.3 (21.0-32.0) mmol/L BUN 15 (7.0-18.0) mg/dL Creatinine 1.3 (0.8-1.3) mg/dL Est Cr Clr Drug Dosing 111.38 mL/min Estimated GFR (MDRD) > 60.0 ml/min Glucose 108 H (74-106) mg/dL Calcium 8.7 (8.5-10.1) mg/dL Total Bilirubin 0.4 (0.2-1.0) mg/dL AST 18 (15-37) IU/L ALT 28 (14-63) IU/L Alkaline Phosphatase 57 (46-116) U/L Total Protein 7.9 (6.4-8.2) g/dL Albumin 4.1 (3.4-5.0) g/dL Globulin 3.8 (2.6-4.0) g/dL Albumin/Globulin Ratio 1.1 (0.9-1.6) Urine Color YELLOW Urine Appearance CLEAR Urine pH 6.5 (5.0-8.0) Ur Specific [place] 1.025 (1.001-1.035) Urine Protein NEGATIVE (NEGATIVE) mg/dL Urine Glucose (UA) NEGATIVE (NEGATIVE) mg/dL Urine Ketones NEGATIVE (NEGATIVE) mg/dL Urine Occult Blood NEGATIVE (NEGATIVE) Urine Nitrite NEGATIVE (NEGATIVE) Urine Bilirubin NEGATIVE (NEGATIVE) Urine Urobilinogen 0.2 (<2.0) EU/dL Ur Leukocyte Esterase NEGATIVE (NEGATIVE) Med Orders - Current: Current Medications Hydromorphone HCl (Dilaudid) 0.5 mg IM Q1H PRN PRN Reason: Pain Last Admin: 02/13/19 08:07 Dose: 0.5 mg Ondansetron HCl (Zofran) 4 mg IVPUSH Q6H PRN PRN Reason: Nausea Oxycodone/Acetaminophen (Percocet 325-5 Mg) 2 tab PO Q4H PRN PRN Reason: Abdominal Pain Last Admin: 02/13/19 15:29 Dose: 2 tab Sodium Chloride (Saline Flush) 10 ml FLUSH ASDIRECTED PRN PRN Reason: Keep Vein Open Sodium Chloride (Saline Flush) 2.5 ml FLUSH ASDIRECTED PRN PRN Reason: Keep Vein Open Discontinued Medications Bupivacaine HCl (Marcaine 0.5%) Confirm Administered Dose 30 ml .ROUTE .STK-MED ONE Stop: 02/13/19 10:31 Bupivacaine HCl (Sensorcaine-Mpf 0.5%) Confirm Administered Dose 20 ml .ROUTE .STK-MED ONE Stop: 02/13/19 10:31 Dexamethasone (Dexamethasone) Confirm Administered Dose 20 mg .ROUTE .STK-MED ONE Stop: 02/13/19 11:32 Fentanyl (Sublimaze) Confirm Administered Dose 100 mcg .ROUTE .STK-MED ONE Stop: 02/13/19 09:12 Sodium Chloride (Normal Saline) 1,000 mls @ 999 mls/hr IV STAT ONE Stop: 02/13/19 00:31 Last Admin: 02/12/19 23:43 Dose: 999 mls/hr Lactated Ringer's (Ringers, Lactated) 1,000 mls @ 125 mls/hr IV ASDIRECTED [facility] Last Admin: 02/13/19 01:53 Dose: 125 mls/hr Piperacillin Sod/Tazobactam (Sod 3.375 gm/ Sodium Chloride) 50 mls @ 100 mls/ hr IV ONETIME ONE Stop: 02/13/19 02:13 Last Admin: 02/13/19 01:53 Dose: 100 mls/hr Lactated Ringer's (Ringers, Lactated) 1,000 mls @ 125 mls/hr IV ASDIRECTED [facility] Piperacillin Sod/Tazobactam (Sod 3.375 gm/ Sodium Chloride) 50 mls @ 100 mls/ hr IV Q6H [facility] Last Admin: 02/13/19 08:10 Dose: 100 mls/hr Acetaminophen (Ofirmev) Confirm Administered Dose 100 mls @ as directed IV .STK- MED ONE Stop: 02/13/19 11:28 Iopamidol (Isovue Multipack-370 (76%)) 100 ml IVPUSH ONETIME STA Stop: 02/13/19 00:55 Last Admin: 02/13/19 00:55 Dose: 100 ml Ketorolac Tromethamine (Toradol) 30 mg IVPUSH ONETIME ONE Stop: 02/12/19 23:32 Last Admin: 02/12/19 23:44 Dose: 30 mg Ketorolac Tromethamine (Toradol) Confirm Administered Dose 30 mg .ROUTE .STK- MED ONE Stop: 02/13/19 12:09 Lidocaine (Xylocaine-Mpf 2%) Confirm Administered Dose 5 ml .ROUTE .STK-MED ONE Stop: 02/13/19 09:14 Midazolam HCl (Versed 1 Mg/Ml) Confirm Administered Dose 2 mg .ROUTE .STK-MED ONE Stop: 02/13/19 10:21 Mineral Oil/White Petrolatum (Lacri-Lube S.O.P Oint) Confirm Administered Dose 3.5 gm .ROUTE .STK-MED ONE Stop: 02/13/19 09:47 Ondansetron HCl (Zofran) 4 mg IVPUSH ONETIME ONE Stop: 02/12/19 23:32 Last Admin: 02/12/19 23:44 Dose: 4 mg Ondansetron HCl (Zofran) Confirm Administered Dose 4 mg .ROUTE .STK-MED ONE Stop: 02/13/19 09:14 Propofol (Diprivan 20 Ml) Confirm Administered Dose 200 mg .ROUTE .STK-MED ONE Stop: 02/13/19 09:12 Rocuronium [place] (Zemuron) Confirm Administered Dose 100 mg .ROUTE .STK-MED ONE Stop: 02/13/19 11:18 Succinylcholine Chloride (Succinylcholine Chloride) Confirm Administered Dose 200 mg .ROUTE .STK-MED ONE Stop: 02/13/19 11:32 Sugammadex Sodium (Bridion) Confirm Administered Dose 200 mg .ROUTE .STK-MED ONE Stop: 02/13/19 12:03 - Exam Wound/Incisions: Healing Well, Drainage (scant) General: Alert, Oriented, Cooperative HEENT: Pupils Equal Lungs: Normal Respiratory Effort Cardiovascular: Regular Rate GI/Abdominal Exam: Soft, Non-Tender, No Distention, No Mass Skin: Warm, Dry, Intact - Problem List & Annotations (1) Appendicitis SNOMED Code(s): 60821079 Code(s): K37 - UNSPECIFIED APPENDICITIS Status: Acute Current Visit: Yes Qualifiers: Appendicitis type: acute appendicitis Acute appendicitis type: with localized peritonitis Appendicitis gangrene presence: without gangrene Appendicitis perforation presence: without perforation Appendicitis abscess presence: without abscess Qualified Code(s): K35.30 - Acute appendicitis with localized peritonitis, without perforation or gangrene - Problem List Review Problem List Initiated/Reviewed/Updated: Yes - My Orders Last 24 Hours: Active Orders 24 hr Category Date Time Status Patient Status [ADT] Stat ADT 02/13/19 01:47 Active Activity as Tolerated [RC] .Routine Care 02/13/19 02:09 Active Ready for Discharge [RC] PER UNIT ROUTINE Care 02/13/19 19:00 Ordered Vital Signs [RC] Q4H Care 02/13/19 02:08 Active Regular Diet [DIET] Diet 02/13/19 Dinner Active Acetaminophen/oxyCODONE [Percocet 325-5 MG] Med 02/13/19 12:08 Active 2 tab PO Q4H PRN HYDROmorphone [Dilaudid] Med 02/13/19 02:04 Active 0.5 mg IM Q1H PRN Ondansetron [Zofran] Med 02/13/19 02:07 Active 4 mg IVPUSH Q6H PRN Sodium Chloride 0.9% [Saline Flush] Med 02/12/19 23:31 Active 10 ml FLUSH ASDIRECTED PRN Sodium Chloride 0.9% [Saline Flush] Med 02/12/19 23:31 Active 2.5 ml FLUSH ASDIRECTED PRN Saline Lock Insert [OM.PC] Stat Oth 02/12/19 23:31 Ordered Medication Orders Hydromorphone HCl (Dilaudid) 0.5 mg IM Q1H PRN PRN Reason: Pain Last Admin: 02/13/19 08:07 Dose: 0.5 mg Ondansetron HCl (Zofran) 4 mg IVPUSH Q6H PRN PRN Reason: Nausea Oxycodone/Acetaminophen (Percocet 325-5 Mg) 2 tab PO Q4H PRN PRN Reason: Abdominal Pain Last Admin: 02/13/19 15:29 Dose: 2 tab Sodium Chloride (Saline Flush) 10 ml FLUSH ASDIRECTED PRN PRN Reason: Keep Vein Open Sodium Chloride (Saline Flush) 2.5 ml FLUSH ASDIRECTED PRN PRN Reason: Keep Vein Open - Plan Plan (Free Text/Narrative):: Patient is tolerating a diet, ambulating and his pain is well controlled with po pain medications. His vitals have been stable since surgery. He is cleared to go home.
--- NOTE | 2019-02-14 13:58 | OR ---
SURGEON: TATI KELLY MD DATE OF PROCEDURE: 02/13/2019 PREOPERATIVE DIAGNOSIS: Acute appendicitis. POSTOPERATIVE DIAGNOSIS: Acute appendicitis. PROCEDURE PERFORMED: Laparoscopic appendectomy. PRIMARY SURGEON: Tati Kelly MD. ANESTHESIA: General endotracheal anesthesia. FLUIDS: 600 mL of crystalloid. ESTIMATED BLOOD LOSS: 5 mL. URINE OUTPUT: 50 mL. FINDINGS: Enlarged and inflamed appendix. No evidence of perforation. COMPLICATIONS: None. INDICATIONS: The patient is a 23-year-old male who presents with acute appendicitis. I explained the need for an appendectomy. I will attempt it laparoscopically, but should I be unable to perform it safely, I will convert to open. The patient and I discussed the procedure; expected perioperative course; and risks including bleeding, infection, or damage to surrounding structures. He verbalized understanding and wishes to proceed. PROCEDURE IN DETAIL: The patient was brought into the OR and placed on the OR table in supine position. A time-out was completed verifying the patient's name, age, date of , allergies, and procedure to be performed. General endotracheal anesthesia was induced. The left arm was tucked to the patient's side and a Griggs catheter placed. The abdomen was prepped and draped in usual standard fashion. I anesthetized an area 2 fingerbreadths below the left subcostal margin in the midclavicular line with 0.5% Marcaine plain. An 11 blade was used to make a 1 cm incision in this area. A 5 mm optical trocar was used to gain entry into the left upper quadrant. All layers of the abdominal wall were visualized upon entry. The abdomen was insufflated and a 5 mm 30-degree scope was inserted in the abdomen. I closely inspected the area underneath my initial trocar placement and no damage to surrounding structures was noted. A 5 mm trocar was placed under direct visualization just left and lateral to the umbilicus. A 12 mm trocar was placed under direct visualization in the left lower quadrant. The patient was then placed into Trendelenburg position and airplaned slightly to the left. Upon turning my attention to the right lower quadrant, I immediately noticed an enlarged and inflamed appendix. The tip of this was grasped, and I inspected the remainder of the organ. There was no evidence of perforation. The appendiceal mesentery was free of the surrounding structures. It was then taken down using a Harmonic scalpel device in distal to proximal fashion. Once the appendiceal mesentery was cleared away from the appendix itself, I closely inspected the base of the appendix where it inserted on the cecum. This appeared to be healthy with no evidence of inflammation. An endoscopic stapling device was brought into the field. I stapled and transected across the base of the appendix with a 45 mm blue load of mathew. The appendix was then placed in an Endo Catch bag and removed through the 12 mm port site in the left lower quadrant. The port was replaced, and I inspected my operative field. The staple line appeared to be intact. There was no evidence of purulent fluid around the area and the operative field was hemostatic. I removed the 12 mm trocar and closed the site with an interrupted 0 Vicryl suture using a Yifan-Abdulkadir device. The 5 mm trocars were then removed under direct visualization and the abdomen allowed to desufflate. I closed the 12 mm trocar site with layers of interrupted 3-0 Vicryl sutures. The skin was closed with a running 4-0 Monocryl stitch. The 5 mm trocar sites were closed with interrupted 4-0 Monocryl sutures. Steri-Strips and sterile dressings were applied. All counts were complete and correct at the end of the case. The patient was extubated and taken to PACU in stable condition. SEKOU SMALL /[id number]
== END 2019-02-13 19:43 | disposition home or self-care (01) ==
LOC: MW.ED 23:04 → MW.SDS 02-13 01:47 → MW.MS 02-13 01:57 → MW.SDS 02-13 19:43
PROVIDERS: ATTEND Surgery
DX: K35.80 Unspecified acute appendicitis (principal); Z91.09 Other allergy status, other than to drugs and biological substances
CPT/HCPCS: 36415; 44970; 74177; 80053; 81003; 85025; 96361; 96365; 96375; 99284; A9270; J0131; J0330; J1100; J1170; J1885; J2001; J2250; J2405; J2543; J2704; J3010; J3490; J7040; J7050; J7120; Q9967; 88304